=== PATIENT | male | born 1975 | race Caucasian/White ===

== ENCOUNTER 2021-07-21 13:18 | Emergency (ER) | payer OTHER, SELFPAY ==
--- NOTE | ~2021-07-21 | XR_ITS ---
EXAMINATION: XR tibia fibula LT 2V EXAM DATE: 07/21/2021 14:11 INDICATION: Hit with a hockey puck in left lower leg. TECHNIQUE: Left tibia/fibula frontal and lateral projections obtained and reviewed. There is no prio r study for comparison. FINDINGS: Left tibial and fibular shafts unremarkable. There are no acute fractures or dislocations identified. There is no subcutaneous gas. Some subcutaneous edema seen over the lower 3rd aspect le ft leg subcutaneous fat. There are no radiopaque foreign bodies. IMPRESSION: 1. Left tibia/fibula exam without acute osseous findings. 2. Soft tissue swelling. Reviewed, dictated and finalized at location B.
[2021-07-21 13:44] VITALS: BP 129/73; PULSE 55; RESP 17; TEMP 36.3; O2SAT 98
--- NOTE | 2021-07-21 14:27 | ED.LOWEXIN ---
HPI - Extremity Injury (Lower) General Chief Complaint: Extremity Injury, Lower Stated Complaint: Lt leg pain Time Seen by Provider: 07/21/21 14:27 Source: patient, RN notes reviewed and old records reviewed Mode of arrival: ambulatory Limitations: no limitations History of Present Illness HPI Narrative: 46-year-old male who presents to [facility] with complaints of injury to the left medial lower leg after being hit by a puck last Wednesday while playing hockey. States that he played again later in the week also. Patient states that he still is having pain swelling bruising and some erythema to initial site and is concerned of possible fracture.He states that swelling has gone down to area but pain remains, has taken some Ibuprofen and used ice to area, denies any pain to calf area or any changes in respiratory status. MD complaint: leg injury Related Data Home Medications Medication Instructions Recorded Confirmed No Home Medications 07/21/21 07/21/21 Allergies Allergy/AdvReac Type Severity Reaction Status Date / Time No Known Allergies Allergy Verified 07/21/21 13:51 Review of Systems Review of Systems: CONSTITUTIONAL: Denies fever, chills, or sweats. EYES: Denies visual changes, redness, or discharge. ENT: Denies rhinorrhea, congestion, sore throat, or otalgia. CARDIOVASCULAR: Denies chest pain, palpitations, or edema. RESPIRATORY: Denies cough or dyspnea. GASTROINTESTINAL: Denies abdominal pain, nausea, vomiting, or diarrhea. GENITOURINARY: Denies dysuria or hematuria. SKIN: Denies rash or itching.bruising redness to medial aspect of left lower leg with some bruising also noted around ankle and medial foot, no acute warmth to tissue MUSCULOSKELETAL: Denies back pain, left medial lower leg pain, or myalgia. NEUROLOGIC: Denies headache, numbness, or weakness. PSYCHIATRIC: Denies anxiety or depression. All systems reviewed & are unremarkable except as noted in HPI and below PMFSH Past Medical History Medical History No active medical problems Surgical History Surgical History No history of previous surgery Social History Social History (Updated 07/22/21 @ 08:53 by Christine Starr NP) Smoking status: Former smoker Alcohol intake: current Alcohol use details: social Substance use type: does not use Living arrangements: with family Gender identity (if verbalized by the patient): Male Comments At time of signature, agree with nursing past medical, surgical, social and family history. There is no relevant family history pertinent to the presenting complaint Exam Narrative: GENERAL: Well-appearing, well-nourished, and in no acute distress. HEAD: Normocephalic, atraumatic. EYES: PERRLA and EOMI. ENT: Nares clear, no rhinorrhea or epistaxis. Mucous membranes moist. NECK: Supple.no lymphadenopathy CHEST: Clear to auscultation. No respiratory distress.no tachypnea or any shortness of breath or pain with breathing SAO2 97% on room air HEART: Regular rate and rhythm. No murmur heard. Normal peripheral pulses. ABDOMEN: Soft, nontender, nondistended, normal active bowel sounds. EXTREMITIES: Normal range of motion Pain with swelling to the medial aspect of left lower leg with some erythema with bruising to area and to medial ankle and medial foot. Circulation sensation and mobility intact to left lower leg. SKIN: Warm, dry, no rash. NEURO: No focal deficits. Alert and oriented x3. Course Course Level of Care: Express Care Visit Vital Signs Vital signs: Vital Signs Temperature 36.3 C L 07/21/21 13:44 Pulse Rate 55 L 07/21/21 13:44 Respiratory Rate 17 07/21/21 13:44 Blood Pressure 129/73 07/21/21 13:44 Pulse Oximetry 98 07/21/21 13:44 Temperature 36.3 C L 07/21/21 13:44 Pulse Rate 55 L 07/21/21 13:44 Respiratory Rate 17 07/21/21 13:44 Blood Pressure 129/73
== END 2021-07-21 14:45 | disposition home or self-care (01) ==
PROVIDERS: Emergency Provider Registered Nurse
DX: S80.12XA Contusion of left lower leg, initial encounter (principal); W21.220A Struck by ice hockey puck, initial encounter; Y93.22 Activity, ice hockey; Z87.891 Personal history of nicotine dependence
CPT/HCPCS: 73590; 99203; G0463